=== PATIENT | female | born 1955 | race Caucasian/White ===

== ENCOUNTER 2021-02-10 13:50 | Outpatient (CLI) | payer MEDICARE | END 2021-02-10 13:51 | disposition home or self-care (01) | LOC: CSHULT 13:50 | PROVIDERS: ATTEND Family Medicine | DX: I82.401 Acute embolism and thrombosis of unspecified deep veins of right lower extremity (principal) ==

== ENCOUNTER 2021-02-13 09:58 | Emergency (ER) | payer MEDICARE ==
[2021-02-13] MEDS ORDERED: Morphine 4 MG/ML VIAL ONE (11:29)
== END 2021-02-13 12:40 | disposition home or self-care (01) ==
LOC: CSHERS 09:58
DX: M25.561 Pain in right knee (principal); E11.40 Type 2 diabetes mellitus with diabetic neuropathy, unspecified; Z86.718 Personal history of other venous thrombosis and embolism; Z79.01 Long term (current) use of anticoagulants
CPT/HCPCS: 96374; J2270

== ENCOUNTER 2021-03-28 21:16 | Emergency (ER) | payer MEDICARE ==
[2021-03-28] MEDS ORDERED: HYDROcodone/Acetaminophen 5/325 mg Tablet ONE (22:34)
== END 2021-03-28 23:16 | disposition home or self-care (01) ==
LOC: CSHERS 21:16
DX: M25.562 Pain in left knee (principal); E11.9 Type 2 diabetes mellitus without complications; K58.9 Irritable bowel syndrome, unspecified; F17.210 Nicotine dependence, cigarettes, uncomplicated; Z79.01 Long term (current) use of anticoagulants; Z79.899 Other long term (current) drug therapy